=== PATIENT | male | born 1980 | race African-American/Black ===

== ENCOUNTER 2018-07-15 18:10 | Emergency (ER) | payer OTHER ==
[~2018-07-15] VITALS: Ht 175.3 cm; Wt 86.2 kg
--- NOTE | ~2018-07-15 | EKG ---
[place] [address] [facility] [place] [address] ELECTROCARDIOGRAM REPORT Name: EMERALD JOHNSON Room #: [facility] Camara#: [id number] Admission: 07/15/18 Attend Phys: Discharge: 07/15/18 Date of : 82 Report #: [id number] THIS REPORT FOR: //name// [facility] ED Test Date: 2018-07-15 Test Time: 18:17:12 Pat Name: EMERALD JOHNSON Department: Room: Gender: M Jacquard Lace Weaver: JACK : 1980 Requested By: Denice Hernández Order Number: [id number] MD: Benjie Jain Measurements Intervals [place] Rate: 59 P: 27 NH: 119 QRS: 39 QRSD: 88 T: -5 QT: 382 QTc: 379 Interpretive Statements Sinus rhythm Borderline short NH interval Probable left ventricular hypertrophy No previous ECG available for comparison Electronically Signed On 07-16-2018 8:24:33 [employer] by Benjie Jain [email or web address] <ELECTRONICALLY SIGNED> By: Benjie Jain MD, [facility] 07/16/18 0824 1817 16 Benjie Jain MD, FACC /EPI
[2018-07-15 19:34] LABS: BASOPHILS 0.6 % (0.0-2.0); EOSINOPHILS 2.1 % (0.0-3.0); HEMATOCRIT 43.9 % (42.0-52.0); HEMOGLOBIN 14.5 gm/dL (14.0-18.0); LYMPHOCYTES 38.7 % (24.0-44.0); MCH 29.7 pg (26.0-34.0); MCHC 33.1 g/dL (28.0-37.0); MCV 89.8 fL (80.0-100.0); MONOCYTES 10.3 % (1.0-8.0); PLATELET COUNT 255 thou/uL (150-400); POLYS 48.3 % (36.0-66.0); RBC 4.89 mil/uL (4.50-6.00); RDW 13.3 % (10.5-14.5); WBC 6.2 thou/uL (4.0-11.0)
[2018-07-15 19:44] LABS: ANION GAP 7 mmol/L (7-16); BUN 5 mg/dL (7-18); CALCIUM 8.9 mg/dL (8.5-10.1); CHLORIDE 104 mmol/L (98-107); CO2 28 mmol/L (21-32); CREATININE 0.9 mg/dL (0.7-1.3); GLUCOSE 98 mg/dL (74-106); POTASSIUM 3.7 mmol/L (3.5-5.1); SODIUM 139 mmol/L (136-145)
[2018-07-15 19:55] LABS: ALBUMIN 4.1 g/dL (3.4-5.0); SGOT 21 U/L (15-37); SGPT 26 U/L (30-65); TOTAL BILIRUBIN 0.2 mg/dL (<0.1-1.0); TOTAL PROTEIN 7.8 g/dL (6.4-8.2); TROPONIN-I <0.06 ng/mL (<0.06)
[2018-07-15] MEDS ORDERED: NAPROSYN500 MG PO (20:08)
[2018-07-15 20:28] VITALS: BP 121/80
== END 2018-07-15 20:30 | disposition home or self-care (01) ==
LOC: ER 18:10
PROVIDERS: Nurse Practitioner Family
DX: R07.89 Other chest pain (principal)